=== PATIENT | male | born 1965 | race Caucasian/White ===

== ENCOUNTER 2023-11-17 16:56 | Observation (INO) | payer OTHER ==
[~2023-11-17] VITALS: Ht 177.8 cm; Wt 68.0 kg
[~2023-11-17 16:56] MED LIST: EMTRICITABINE-1 EAC1; ESCI10 PO; LAMO25 PO; OMEP20ER PO; TADA10TA
[2023-11-17] MEDS ORDERED: LORazepam 2 MG/ML 1ML Injection IV PRN (19:00)
[2023-11-17] MEDS ORDERED: THIAMINE HCL IM ONE (19:00)
[2023-11-17] MEDS ORDERED: FOLIC ACID 5 MG/ML SC ONE (19:00)
[2023-11-17] MEDS ORDERED: Folic Acid 1 MG TAB PO ONE (19:15)
[2023-11-17] MEDS ORDERED: LORazepam 2 MG/ML 1ML Injection IM PRN (19:15)
[2023-11-17] MEDS ORDERED: Thiamine HCl 100 MG Tab PO ONE (19:15)
[2023-11-17 19:28] LABS: BASOPHILS ABSOLUTE AUTO 0.04 K/mm3 (0.00-0.23); BASOPHILS PERCENT AUTO 1 % (0-2); EOSINOPHILS PERCENT AUTO 1 % (0-6); Hematocrit 42.6 % (37.0-53.0); Hemoglobin 15.4 g/dL (13.5-17.5); IMMATURE GRAN ABSOLUTE AUTO 0.03 K/mm3 (0.00-0.10); IMMATURE GRAN PERCENT AUTO 0 % (0-1); LYMPHOCYTES ABSOLUTE AUTO 1.79 K/mm3 (0.84-5.20); LYMPHOCYTES PERCENT AUTO 21 % (21-46); MONOCYTES ABSOLUTE AUTO 0.64 K/mm3 (0.16-1.47); MONOCYTES PERCENT AUTO 7 % (4-13); Mean Corpuscular HGB 32.4 pg (26.0-34.0); Mean Corpuscular HGB Conc 36.2 g/dL (31.5-36.5); Mean Corpuscular Volume 90 fL (80-100); Mean Platelet Volume 10.6 fL (9.1-12.4); NEUTROPHILS ABSOLUTE AUTO 6.12 K/mm3 (1.96-9.15); NEUTROPHILS PERCENT AUTO 70 % (41-73); Platelet Count 234 K/mm3 (150-400); RDW Coefficient Variation 13.5 % (11.7-14.2); RDW Standard Deviation 44.7 fL (35.1-46.3); Red Blood Cell Count 4.75 M/mm3 (4.30-5.90); White Blood Cell Count 8.72 K/mm3 (4.00-11.30)
[2023-11-17 19:50] LABS: Source, Urine Clean Catch
[2023-11-17 19:52] LABS: Ethanol (Alcohol), Blood, Med 68 mg/dL
[2023-11-17 20:02] LABS: Appearance, Urine Clear (Clear); Bilirubin, Urine Neg (Neg); Blood, Urine Neg (Neg); Glucose Qualitative, Urine Neg (Neg); Ketones, Urine Neg (Neg); Leukocyte Esterase, Urine Neg (Neg); Nitrite, Urine Neg (Neg); Protein, Urine Neg (Neg); Urobilinogen, Urine NORM (Normal)
[2023-11-17 20:05] LABS: Color, Urine Pale Yellow (P-Yellow)
[2023-11-17 20:05] LABS: Acetaminophen, Random <2.0 ug/mL (10.0-30.0); Alanine Aminotransfer (ALT/SGP 30 U/L (12-78); Albumin, Blood 4.4 g/dL (3.4-5.0); Albumin/Globulin Ratio 1.3 (0.8-1.8); Alk Phos 66 U/L (50-136); Anion Gap 10 mmol/L (3-11); Aspartate Aminotrans (AST/SGOT 37 U/L (12-37); Bilirubin, Total 0.5 mg/dL (0.1-1.0); Blood Urea Nitrogen 11 mg/dL (8-24); Bun/Creatinine Ratio 11.3 (12.0-20.0); CO2, Blood 26 mmol/L (21-32); Calcium, Blood 9.6 mg/dL (8.5-10.1); Chloride, Blood 106 mmol/L (98-108); Creatinine, Blood 0.97 mg/dL (0.60-1.20); Globulin, Blood 3.4 g/dL (2.2-4.0); Glomerular Filtration Rate 91 (60-); Glucose, Blood 131 mg/dL (70-99); Potassium, Blood 3.8 mmol/L (3.5-5.5); Sodium, Blood 138 mmol/L (136-145); Total Protein, Blood 7.8 g/dL (6.4-8.2)
[2023-11-17] MEDS ORDERED: Seroquel Xr50 MG (20:07)
[2023-11-17 20:19] LABS: U Amphetamine Screen Not Detected; U Barbituate Screen Not Detected; U Benzodiazapine Screen Not Detected; U Buprenorphine Screen Not Detected; U Cannabinoids Screen DETECTED; U Cocaine Screen Not Detected; U Methadone Screen Not Detected; U Methamphetamine Screen Not Detected; U Opiates Screen Not Detected; U Oxycodone Screen Not Detected; U Phencyclidine Screen Not Detected
[2023-11-17] MEDS ORDERED: Diphth,Pertuss(Acell),Tet Vac 0.5 ML VIAL IM ONE (21:10)
[2023-11-17] MEDS ORDERED: Droperidol 5 mg/2 ml Vial IM ONE (23:55)
[2023-11-18] MEDS ORDERED: QUEtiapine Fumarate 25 MG Tab PO ONE (00:35)
[2023-11-18] MEDS ORDERED: LamoTRIgine 25 MG Tab PO ONE (00:35)
[2023-11-18] MEDS ORDERED: LamoTRIgine 100 MG Tab PO SCH (10:00)
[2023-11-18] MEDS ORDERED: LamoTRIgine 25 MG Tab PO SCH (10:00)
[2023-11-18] MEDS ORDERED: Diphth,Pertuss(Acell),Tet Vac 0.5 ML VIAL IM ONE (10:10)
[2023-11-18] MEDS ORDERED: Citalopram Hydrobromide 20 MG Tab PO ONE (10:55)
[2023-11-18 11:00] VITALS: BP 140/82
[2023-11-19] MEDS ORDERED: Citalopram Hydrobromide 20 MG Tab PO SCH (09:00)
== END 2023-11-18 11:53 | disposition home or self-care (01) ==
LOC: ER 16:56 → EOR 16:57
PROVIDERS: Physician Assistant; ADMIT Emergency Medicine
DX: F31.9 Bipolar disorder, unspecified (principal); F43.29 Adjustment disorder with other symptoms; F43.10 Post-traumatic stress disorder, unspecified; R45.851 Suicidal ideations; S41.112A Laceration without foreign body of left upper arm, initial encounter; X58.XXXA Exposure to other specified factors, initial encounter; Z79.899 Other long term (current) drug therapy
CPT/HCPCS: 12002; 80053; 81003; 85025; 90471; 90715; 93005; 93010; 99285-25; A9270; G0378; G0480; J3411

== ENCOUNTER 2024-11-27 07:04 | Day surgery (SDC) | payer OTHER ==
[~2024-11-27] VITALS: Ht 177.8 cm; Wt 77.0 kg
[~2024-11-27 07:04] MED LIST changes: +Seroquel Xr50 MG
[2024-11-27] MEDS ORDERED: Lactated Ringer's 1,000 ML IV ONE ×2 (07:24→07:45)
[2024-11-27] MEDS ORDERED: CeFAZolin Sodium 2,000 MG VIAL ONE (07:24)
[2024-11-27] MEDS ORDERED: Lithium Carbon450 MG (07:33)
[2024-11-27] MEDS ORDERED: THERA-D2000 UNIT (07:35)
[2024-11-27] MEDS ORDERED: GABA100 (07:36)
[2024-11-27] MEDS ORDERED: Midazolam HCl 1MG / ML 2ML Vial ONE (08:00)
[2024-11-27] MEDS ORDERED: propofoL 20 ML IV ONE (08:00)
[2024-11-27] MEDS ORDERED: FentaNYL Citrate 50 MCG/ML 2 ML Injection ONE (08:00)
[2024-11-27] MEDS ORDERED: Ketorolac Tromethamine 30mg Vial ONE ×2 (08:11→08:46)
[2024-11-27] MEDS ORDERED: Lidocaine 2%-Epineph 1:100000 20 ML MDV ONE (08:38)
[2024-11-27] MEDS ORDERED: EPINEPhrine HCl 1 MG/ML 1ML Amp ONE (08:38)
[2024-11-27] MEDS ORDERED: Ondansetron HCl 2 MG / ML 2ML Vial ONE (08:46)
[2024-11-27] MEDS ORDERED: Dexamethasone Sod Phos 10 MG/ML 1ML VIAL ONE (08:46)
[2024-11-27 09:56] VITALS: BP 132/70
--- NOTE | 2024-11-27 10:25 | NUR ---
11/27/24 1025 FREDDIE FARAH POLAR PACK ON, EXPLAINED HOW TO USE IT AND HOW TO CONNECT. PT DOES NOT HAVE CRUTCHES BUT STATES THAT HE HAS 3 CANES. STATES HE WILL TRY THEM INSTEAD OF GETTING CRUTCHES, THOUGH HE STATES [facility].
== END 2024-11-27 10:50 | disposition home or self-care (01) ==
LOC: ORSCSDS 07:04
PROVIDERS: Orthopaedic Surgery
PROC: 0SCD4ZZ Extirpation of Matter from Left Knee Joint, Percutaneous Endoscopic Approach (ICD-10-PCS; principal; 2024-11-27 09:00)
DX: M23.42 Loose body in knee, left knee (principal); S83.92XA Sprain of unspecified site of left knee, initial encounter; D48.7 Neoplasm of uncertain behavior of other specified sites; X50.1XXA Overexertion from prolonged static or awkward postures, initial encounter; F41.9 Anxiety disorder, unspecified; F32.A Depression, unspecified; F17.220 Nicotine dependence, chewing tobacco, uncomplicated; Z79.899 Other long term (current) drug therapy
CPT/HCPCS: 88305; J0171; J0690; J1100; J1885; J2250; J2405; J2704; J3010; J7120